=== PATIENT | male | born 1990 | race Caucasian/White ===

== ENCOUNTER 2018-04-12 18:22 | Emergency (ER) | payer MEDICAID ==
[2018-04-12 20:55] LABS: ADD UMIC YES; UR ASCORBIC ACID NEGATIVE (NEGATIVE); UR BILIRUBIN (Dip) NEGATIVE (NEGATIVE); UR BLOOD (Dip) 3+ mg/dL (NEGATIVE); UR CLARITY CLOUDY (CLEAR); UR COLOR YELLOW (YELLOW); UR GLUCOSE (Dip) NEGATIVE (NEGATIVE); UR KETONES (Dip) NEGATIVE (NEGATIVE); UR LEUKOCYTE ESTERASE (Dip) TRACE Leu/ul (NEGATIVE); UR MUCUS FEW /HPF (NONE SEEN); UR NITRITE (Dip) NEGATIVE (NEGATIVE); UR RBC > 182 /HPF (0-5); UR SPECIFIC GRAVITY (Dip) 1.026 (1.003-1.030); UR SQUAMOUS EPITHELIAL CELL FEW /HPF (FEW); UR TOTAL PROTEIN (Dip) 2+ mg/dl (NEGATIVE); UR UROBILINOGEN (Dip) 1+ mg/dL (NEGATIVE); UR WBC 84 /HPF (0-5)
== END 2018-04-12 21:13 | disposition home or self-care (01) ==
LOC: FTE 18:22
DX: R30.0 Dysuria (principal); F17.210 Nicotine dependence, cigarettes, uncomplicated
CPT/HCPCS: 36415; 81001; 87086; 99283

== ENCOUNTER 2018-06-23 13:37 | Emergency (ER) | payer MEDICAID | END 2018-06-23 16:00 | disposition home or self-care (01) | LOC: FTE 13:37 | DX: H60.501 Unspecified acute noninfective otitis externa, right ear (principal); B02.8 Zoster with other complications | CPT/HCPCS: 99282; Z7502 ==

== ENCOUNTER 2019-01-28 19:43 | Emergency (ER) | payer MEDICAID ==
[2019-01-28] MEDS: LIDOCAINE/MYLANTA 40 ML BTL PO (21:45)
== END 2019-01-28 22:04 | disposition home or self-care (01) ==
LOC: FTE 19:43
DX: K29.00 Acute gastritis without bleeding (principal); K21.9 Gastro-esophageal reflux disease without esophagitis; E11.9 Type 2 diabetes mellitus without complications; Z79.84 Long term (current) use of oral hypoglycemic drugs; Z87.891 Personal history of nicotine dependence
CPT/HCPCS: 99282; Z7502